=== PATIENT | male | born 1960 | race Caucasian/White ===

== ENCOUNTER 2018-11-19 23:15 | Inpatient (IN) | payer BC ==
[2018-11-19] MEDS ORDERED: Morphine 4 MG/ML VIAL (1 ml) 4 MG/ML VIAL IV ONE (23:16)
[2018-11-19] MEDS ORDERED: Ondansetron INJ* 2 MG/ML VIAL IV ONE (23:16)
--- NOTE | 2018-11-19 23:47 | ED ---
Adult Trauma - HPI Summary HPI Summary: This patient is a 58 year old M presenting to [facility] with a chief complaint of hip pain following a fall since 21:30 today. He tripped over his dog and landed on his right hip. The patient rates the pain 8/10 in severity. He denies head trauma and LOC. Pt was unable to bear weight or ambulate on the scene. Patient currently has esophageal cancer. He recently had a resection, but there is still a small section there. He is going through chemo currently for it, and his last chemo was 11/16/18. He usually has chemo every other week. Pt has a port in his R chest. He is being treated for his cancer at [place]. - History of Current Complaint Chief Complaint: EDHipPelvisInjury Stated Complaint: FALL/RT HIP PAIN PER EMS Time Seen by Provider: 11/19/18 23:15 Hx Obtained From: Patient Mechanism of Injury: Fall Ambulatory at the Scene: No Loss of Consciousness: no loss of consciousness Onset/Duration: Started Hours Ago, Still Present Onset of Pain: Immediate Pain Intensity: 8 Pain Scale Used: 0-10 Numeric Location: Other - Right hip Associated Signs & Symptoms: Positive: Other: - Right hip pain. Denies head trauma.. Negative: Loss of Consciousness - Allergy/Home Medications Allergies/Adverse Reactions: Allergies Allergy/AdvReac Type Severity Reaction Status Date / Time No Known Allergies Allergy Verified 11/19/18 23:26 Home Medications: Home Medications Omeprazole 40 mg PO DAILY 11/20/18 [History Confirmed 11/20/18] Ondansetron ODT TAB* 4 mg PO Q4HR PRN 11/20/18 [History Confirmed 11/20/18] PMH/Surg Hx/FS Hx/Imm Hx Endocrine/Hematology History: Reports: Hx Diabetes - PRE-DIABETIC: TAKES METFORMIN Cardiovascular History: Reports: Hx Hypertension, Other Cardiovascular Problems/ Disorders - WPW Denies: Hx Pacemaker/ICD GI History: Reports: Hx Irritable Bowel, Other GI Disorders - GASTROSTOMY TUBE IN PLACE History: Denies: Hx Renal Disease Sensory History: Denies: Hx Hearing Aid Psychiatric History: Denies: Hx Panic Disorder - Cancer History Cancer Type, Location and Year: ESOPHAGEAL - NEW DX - TREATMENT PLANNING Hx Chemotherapy: No Hx Radiation Therapy: No - Surgical History Surgery Procedure, Year, and Place: WART REMOVED Hx Anesthesia Reactions: No Infectious Disease History: No Infectious Disease History: Denies: Traveled Outside the [place] in Last 30 Days - Family History Known Family History: Positive: Cardiac Disease - Social History Alcohol Use: None Substance Use Type: Reports: None Smoking Status (MU): Never Smoked Tobacco Have You Smoked in the Last Year: No Review of Systems Positive: Other - Right hip pain. Unable to ambulate. Neurological: Other - Denies head trauma Negative: Syncope All Other Systems Reviewed And Are Negative: Yes Physical Exam - Summary Physical Exam Summary: Appearance: well appearing, no pain distress Skin: warm, dry, reflects adequate perfusion Head/face: normal Eyes: EOMI, NICOLLE ENT: mucous membranes moist Neck: supple, non-tender Respiratory: CTA, breath sounds present Cardiovascular: Occasionally irregular rhythm, regular rate, pulses symmetrical Abdomen: non-tender, soft Bowel Sounds: present Musculoskeletal: tenderness with palpation of his right hip but without rotation , RLE is neurovascularly intact Neuro: normal, sensory motor intact, A&Ox3 Triage Information Reviewed: Yes Vital Signs On Initial Exam: Initial Vitals Temp Pulse Resp BP Pulse Ox 98.2 F 74 16 166/106 97 11/19/18 23:15 11/19/18 23:15 11/19/18 23:15 11/19/18 23:15 11/19/18 23:15 Vital Signs Reviewed: Yes Diagnostics - Vital Signs Vital Signs Temp Pulse Resp BP Pulse Ox 11/19/18 23:19 91 166/106 97 11/19/18 23:15 98.2 F 74 16 166/106 97 - Laboratory Result Diagrams: 11/19/18 23:37 11/19/18 23:37 Lab Statement: Any lab studies that have been ordered have been reviewed, and results considered in the medical decision making process. - Radiology Chest X-Ray Radiology Interpretation Completed By: ED Physician Summary of Radiographic Findings: 00:04. No acute findings, he has a port in his R chest. Pending official report. Right hip x-ray Radiology Interpretation Completed By: ED Physician Summary of Radiographic Findings: 00:04. Non-displaced intertrochanteric right hip fracture. Pending official report. - EKG 23:59 Cardiac Rate: NL - 78 bpm EKG Rhythm: Sinus Rhythm ST Segment: Normal Ectopy: PVCs - 2 PVCs Summary of EKG Findings: Normal axis, normal interval. Adult Trauma Course/Dx - Course Course Of Treatment: Patient with a history of esophageal cancer on chemotherapy had a mechanical fall over his dog landing on his greater trochanter of the right hip. There is a nondisplaced fracture there and he is unable to weight-bear. He will be made nonweightbearing formally and admitted to the hospital for operative plan with orthopedics. Hospitalist will admit. - Diagnoses Differential Diagnosis/HQI/PQRI: Positive: Contusion(s), Fracture Provider Diagnoses: Intertrochanteric fracture of right hip, Fall, History of esophageal cancer - Physician Notifications Discussed Care Of Patient With: Reinaldo Jerez - Hospitalist Time Discussed With Above Provider: 00:16 Instructed by Provider To: Admit As Inpatient Discharge - Sign-Out/Discharge Documenting (check all that apply): Patient Departure - Admit All imaging exams completed and their final reports reviewed: No Patient Received Moderate/Deep Sedation with Procedure: No - Discharge Plan Condition: Stable Disposition: ADMITTED TO [facility] - Billing Disposition and Condition Condition: STABLE Disposition: Admitted to [facility] - Attestation Statements Document Initiated by Scribe: Yes Documenting Scribe: Angelo Ordaz Provider For Whom Scribe is Documenting (Include Credential): Roshan Valente MD Scribe Attestation: Angelo Carrera, scribed for Roshan Valente MD on 11/20/18 at 0435. Scribe Documentation Reviewed: Yes Provider Attestation: The documentation as recorded by the Angelo day accurately reflects the service I personally performed and the decisions made by me, Roshan Valente MD Status of Scribe Document: Viewed Consult Consult: 00:43 - Spoke with Dr. Alecia Bear, orthopedics, who will consult.
[2018-11-19 23:54] LABS: Activated Partial Thrombo Time 30.6 seconds (26.0-36.3); INR 1.1 (0.82-1.09)
[2018-11-19 23:58] LABS: Hematocrit 38 % (42-52); Hemoglobin 12.9 g/dL (14.0-18.0); Mean Corpuscular HGB Conc 34 g/dL (31-36); Mean Corpuscular Hemoglobin 31 pg (27-31); Mean Corpuscular Volume 90 fL (80-94); Red Blood Count 4.19 10^6 /uL (4.18-5.48); Red Cell Distribution Width 16 % (10.5-15); White Blood Count 5.1 10^3/uL (3.5-10.8)
[2018-11-20 00:05] LABS: Albumin 4.3 g/dL (3.2-5.2); Albumin/Globulin Ratio 1.9 (1-3); BUN/Creatinine Ratio 13.5 (8-20); Calcium 9.8 mg/dL (8.6-10.3); EGFR African American 131.4 (>60); EGFR Non-African American 108.6 (>60); Globulin 2.3 g/dL (2-4); Potassium 4.1 mmol/L (3.5-5.0); Total Bilirubin 0.8 mg/dL (0.2-1.0); Total Protein 6.6 g/dL (6.4-8.9)
[2018-11-20] MEDS ORDERED: Acetaminophen TAB* 325 MG PO PRN (00:18)
[2018-11-20 00:49] LABS: ABS Lymphocytes 0.1 10^3/ul (1.0-4.8); ABS Monocytes 0.3 10^3/ul (0-0.8); ABS Neutrophils 4.6 10^3/ul (1.5-7.7); Eosinophil % 0.4 %; Lymphocyte % 2.8 %; Mean Platelet Volume 9.7 fL (7.4-10.4); Nucleated Red Blood Cells % 0.6; Platelet Count 93 10^3/uL (150-450)
--- NOTE | 2018-11-20 00:49 | ADMNOTE ---
Subjective Date of Service: 11/20/18 Interval History: HISTORY AND PHYSICAL PCP: Andrew Zavala Oncologist: Kenisha Henriquez CC: right hip pain HPI: Patient is 58 year old man with history of esophageal cancer who was upstairs in his home, turned, tripped over his dog, and fell to floor. He had immediate RT hip pain, was unable to get up. He denies pain now at rest, has severe RT hip pain w/ movement. Medical history notable for diagnoses of esophageal cancer in Fall 2017. He had pre-operative stefany-adjuvant chemo and radiation therapy, and then had a gastric pull-through in Aug of this year. He admits to some fatigue from chemotherapy. He is otherwise well, can walk a mile or climb 2 flights of stairs without dyspnea or chest pain. Family History: Findings - Maternal GF had gastric cancer, mother and father are alive and well Social History: Findings - , 2 children, worked as environmental remediator, never smoker, no current alcohol use, no drug use Past Medical History: Findings - GERD, depression, hyperlipidemia, B12 deficiency, IBS, notes from surgery list diabetes, patient denies; Surgical Hx: gastric pull-through in 09/08 Review of Systems - Measurements Intake and Output: Intake and Output Last 24 Hours 11/17/18 11/18/18 11/19/18 11/20/18 06:59 06:59 06:59 06:59 Weight 79.379 kg - Review of Systems Constitutional Symptoms: Positive: Fatigue Negative: Weight Gain, Weight Loss Dermatology: Positive: Normal HEENT: Positive: Normal Eyes: Positive: Normal Thyroid: Positive: Normal Pulmonary: Positive: Normal Negative: Shortness of Breath Cardiology: Positive: Normal Negative: Chest Pain Gastroenterology: Positive: Heartburn Negative: Abdominal Pain, Vomiting Genital - Urinary: Positive: Normal Musculoskeletal: Negative: Osteoporosis Endocrinology: Positive: Normal Negative: Diabetes Mellitus Hematologic/Lymphatic: Negative: Hx Leukemia Neurology: Positive: Normal Psychiatry: Positive: Normal Objective Active Medications: Home Medications: Acetaminophen (Tylenol Tab*) 650 mg PO Q4H PRN PRN Reason: FEVER/HEADACHE Atorvastatin* [Lipitor 10 MG*] 5 mg PO QAM 08/31/15 Hyoscyamine Sulfate [Levsin] 1 - 2 tab PO Q4HR PRN 08/31/15 Cyanocobalamin TAB* [Vitamin B12 TAB*] 1,000 mcg PO QAM 04/20/18 Omeprazole 40 mg PO DAILY 11/20/18 Ondansetron ODT TAB* 4 mg PO Q4HR PRN 11/20/18 Vital Signs - 8 hr 11/19/18 11/19/18 11/20/18 23:15 23:19 00:05 Temperature 36.8 C Pulse Rate 74 91 Respiratory 16 Rate Blood Pressure 166/106 166/106 152/99 (mmHg) O2 Sat by Pulse 97 97 Oximetry 11/20/18 00:13 Temperature Pulse Rate Respiratory 16 Rate Blood Pressure (mmHg) O2 Sat by Pulse Oximetry Oxygen Devices in Use Now: None Appearance: alert, no distress Eyes: No Scleral Icterus Ears/Nose/Mouth/Throat: NL Teeth, Lips, Gums Neck: NL Appearance and Movements; NL JVP Respiratory: Symmetrical Chest Expansion and Respiratory Effort, Clear to Auscultation Cardiovascular: NL Sounds; No Murmurs; No JVD, RRR Abdominal: NL Sounds; No Tenderness; No Distention, No Hepatosplenomegaly Lymphatic: No Cervical Adenopathy, No Inguinal Adenopathy Extremities: No Edema Skin: - - port palpable RT subclavian Neurological: Alert and Oriented x 3 Lines/Tubes/Other Access: Clean, Dry and Intact Peripheral IV Nutrition: Taking PO's Result Diagrams: 11/19/18 23:37 11/19/18 23:37 Additional Lab and Data: Laboratory Tests 11/19/18 11/19/18 11/19/18 23:37 23:37 23:37 INR (Anticoag Therapy) 1.10 H APTT 30.6 Glucose 111 H Lactic Acid 1.2 Calcium 9.8 AST 36 ALT 38 Troponin I 0.00 Diagnostic Imaging: Chest X-ray: no infiltrates RT hip/pelvis film: right greater trochanteric fracture EKG Data: Normal sinus rhythm, normal axis, no ischemic ST or T-wave changes, PVCs Assess/Plan/Problems-Billing Assessment: 58 year old man with history of esophageal cancer, who sustained a right hip greater trochanteric fracture in a fall - Patient Problems (1) Fracture of right hip requiring operative repair Current Visit: Yes Status: Acute Priority: High Code(s): S72.001A - FRACTURE OF UNSP PART OF NECK OF RIGHT FEMUR, INIT SNOMED Code(s): 977335330 Comment: -Patient will be admitted, will have orthopedic consultation in the morning -Will have bed rest, pain control, hydration due to NPO status -Patient may have osteoporosis due to chemotherapy (2) Pre-op evaluation Current Visit: Yes Status: Acute Priority: High Code(s): Z01.818 - ENCOUNTER FOR OTHER PREPROCEDURAL EXAMINATION SNOMED Code(s): 570461631 Comment: -Patient has good performance status and good exercise tolerance prior to injury -He is at low risk of cardiac complications from surgery, and surgery should proceed today. (3) Esophageal adenocarcinoma Current Visit: Yes Status: Acute Priority: Medium Code(s): C15.9 - MALIGNANT NEOPLASM OF ESOPHAGUS, UNSPECIFIED SNOMED Code(s): 803031682 Comment: -Cancer recently treated, in remission (4) DVT prophylaxis Current Visit: Yes Status: Acute Priority: Medium Code(s): CWR7338 - SNOMED Code(s): 095724044 Comment: -High risk due to fracture and recent neoplasm -started on SCDs and lovenox Status and Disposition: inpatient
[2018-11-20] MEDS ORDERED: Enoxaparin(*) 40 MG/0.4 ML SYR SUBCUT SCH (01:00)
[2018-11-20] MEDS: Morphine 4 MG/ML VIAL (1 ml) 4 MG/ML VIAL IV PRN ×2 (03:15→23:54)
[2018-11-20] MEDS: NS 0.9% 1000 ML** 1,000 ML IV SCH ×2 (03:20→20:05)
[2018-11-20 04:24] LABS: Urine Appearance Clear; Urine Bilirubin Negative (Negative); Urine Blood Negative (Negative); Urine Color Yellow; Urine Glucose Negative (Negative); Urine Ketones Trace (Negative); Urine Nitrite Negative (Negative); Urine Protein Negative (Negative); Urine Specific Gravity 1.015 (1.010-1.030); Urine Urobilinogen Negative (Negative)
--- NOTE | 2018-11-20 14:47 | PN ---
Subjective Date of Service: 11/20/18 Interval History: VS: Lab: Pt is feeling well. He states that R hip pain is 2/10. He states that he had post-op AF in Aug 2018 which resolved. He was on cardizem for approximately 1 month for this and had no complications. 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 use Past Medical History: Findings - GERD, depression, hyperlipidemia, B12 deficiency, IBS, notes from surgery list diabetes, patient denies; Surgical Hx: gastric pull-through in 09/08 Objective Active Medications: Acetaminophen (Tylenol Tab*) 650 mg PO Q4H PRN Atorvastatin Calcium (Lipitor*) 5 mg PO QAM SUKHDEV Cyanocobalamin (Vitamin B12 Tab*) 1,000 mcg PO QAM SUKHDEV Enoxaparin Sodium (Lovenox(*)) 40 mg SUBCUT BEDTIME SUKHDEV Sodium Chloride (Ns 0.9% 1000 Ml) 1,000 mls @ 75 mls/hr IV PER RATE SUKHDEV Morphine Sulfate (Morphine 4 Mg/Ml Vial (1 Ml)) 4 mg IV Q3H PRN Ondansetron HCl (Zofran Inj*) 4 mg IV Q6H PRN Pantoprazole Sodium (Protonix Tab*) 40 mg PO DAILY SUKHDEV Sertraline HCl (Zoloft*) 100 mg PO QAM SUKHDEV Vital Signs: Temp Pulse Resp BP Pulse Ox 97.8 F 79 14 145/73 96 11/20/18 11:10 11/20/18 11:10 11/20/18 11:10 11/20/18 11:10 11/20/18 11:10 Oxygen Devices in Use Now: None Appearance: Pt is laying in bed. He appears comfortable and is cooperative and appropriate. Eyes: No Scleral Icterus, PERRLA Ears/Nose/Mouth/Throat: NL Teeth, Lips, Gums, Clear Oropharnyx, Mucous Membranes Moist Neck: NL Appearance and Movements; NL JVP, Trachea Midline Respiratory: Clear to Auscultation Cardiovascular: NL Sounds; No Murmurs; No JVD, RRR - Occ PVC noted, No Edema Extremities: No Edema, No Clubbing, Cyanosis, - - R hip TTP and painful movement. Radial, pedal pulses intact b/l. Sensation, cap refill intact Neurological: Alert and Oriented x 3 Result Diagrams: 11/19/18 23:37 11/19/18 23:37 Additional Lab and Data: Laboratory Tests 11/19/18 11/19/18 11/19/18 23:37 23:37 23:37 INR (Anticoag Therapy) 1.10 H APTT 30.6 Glucose 111 H Lactic Acid 1.2 Calcium 9.8 AST 36 ALT 38 Troponin I 0.00 Diagnostic Imaging: Chest X-ray: no infiltrates RT hip/pelvis film: right greater trochanteric fracture EKG Data: Normal sinus rhythm, normal axis, no ischemic ST or T-wave changes, PVCs Assess/Plan/Problems-Billing Assessment: 58 year old man with history of esophageal cancer, who sustained a right hip greater trochanteric fracture in a fall - Patient Problems (1) Fracture of right hip requiring operative repair Comment: -Ortho consulted; plan for surgery today -Will have bed rest, pain control, hydration due to NPO status -Patient may have osteoporosis due to chemotherapy (2) Diabetes mellitus Comment: -HA1c elevated to 6.1 -Nutritional consult ordered -Will discuss starting outpatient metformin (3) Postoperative atrial fibrillation Comment: -H/o post-operative AF approximately 2 months ago -EKG: NSR with occasional PVC -Will monitor (4) Esophageal adenocarcinoma Comment: -Cancer recently treated, in remission (5) DVT prophylaxis Comment: -High risk due to fracture and recent neoplasm -started on SCDs and lovenox Status and Disposition: Inpatient. Scheduled for surgery 11/20/2018.
[2018-11-20] MEDS ORDERED: Propofol* 10 MG/ML 20 ML BTL ONE (16:08)
[2018-11-20] MEDS ORDERED: fentaNYL* 50 MCG/ML 2 ML VIAL (100 MCG VIAL) ONE (16:08)
[2018-11-20] MEDS ORDERED: Rocuronium* 10 MG/ML VIAL ONE (16:08)
[2018-11-20] MEDS ORDERED: Midazolam* 1 MG/ML 5 ML VIAL (5 MG) ONE (16:09)
[2018-11-20] MEDS ORDERED: ceFAZolin 2 GM PREMIX in ORs 2 GM/50 ML BAG IVPB ONE (16:11)
[2018-11-20] MEDS ORDERED: Bupivacaine 0.5% W/EPI SDV* 30 ML VIAL ONE (17:08)
--- NOTE | 2018-11-20 17:26 | CONS ---
CONSULTATION NOTE: DATE OF CONSULT: 11/20/18 REASON FOR CONSULT: Right hip fracture. HISTORY OF PRESENT ILLNESS: The patient is a 58-year-old man, with esophageal cancer, currently in r emission, status post August 2018 gastric pull-through surgical procedure, with neoadjuvant chemoth erapy and radiation and adjuvant chemotherapy that he has not done with yet, who sustained a fall at home yesterday on 11/19/18 sustaining his injury. As stated above, the patient is still doing chemotherapy. The patient mentioned that intraoperativel y many biopsies were taken and at least one was positive. At least one lymph node was positive for d isease. The patient is undergoing adjuvant chemotherapy treatment. The patient has been ambulating without assist device and he has not before had right hip pain. The patient was at home yesterday, 11/19/18, when he tripped over his dog and fell to the floor. He had immediate pain about the right hip and was unable to get up. The patient was brought to the emergency room for workup. He had severe right hip pain with any move ment. The patient has otherwise been in good health with the ability to walk a mile or climb 2 flights of s tairs without shortness of breath or chest pain. The hospitalist service admitted the patient for a right hip fracture, DVT prophylaxis, and preoperat adrianna evaluation. The patient was deemed to be low risk of cardiac complications for surgery and it wa s stated that the surgery could proceed forward. PAST MEDICAL HISTORY: Gastroesophageal reflux disease, depression, hyperlipidemia, vitamin B12 defic iency, irritable bowel syndrome, esophageal adenocarcinoma. PAST SURGICAL HISTORY: Gastric pull-through procedure, November 2018. HOME MEDICATIONS: 1. Acetaminophen p.r.n. fever or headache. 2. Atorvastatin. 3. Hyoscyamine sulfate p.r.n. 4. Vitamin B12 tablets p.o. daily. 5. Omeprazole. 6. Ondansetron p.r.n. ALLERGIES: No known drug allergies. FAMILY HISTORY: Noncontributory. 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 Never a smoker. REVIEW OF SYSTEMS: The patient describes right hip pain, but only if he is moving. When he is not mo ving, he does not have significant right hip pain. The patient does have fatigue. No recent additio nal weight loss. No chest pain, shortness of breath, abdominal pain, nausea, or vomiting currently, although the patient has had nausea in the past. No other joint pain. PHYSICAL EXAM: Most recent vitals at 11:10 a.m. today were body temperature 97.8 degrees Fahrenheit, heart rate 79, blood pressure 145/73, respirations 14, and oxygen saturation 96% on room air. No acute distress, alert and oriented, appropriate mood and affect, appropriate dress and hygiene, we ll-coordinated bilateral upper and lower extremities. The patient is lying in a hospital bed. The patient looks slightly thin and possibly slightly bit cachectic for his age and overall activity level. The patient is nontoxic appearing and comfortable lying in bed. Right hip exam shows severe pain with any passive range of motion of the right hip. Skin intact. No soft tissue swelling or bruising right hip area. Neurovascularly intact distally. By report from [place] dicine service, lungs clear to auscultation bilaterally and heart regular rate and rhythm. DIAGNOSTIC STUDIES/LAB DATA: Platelet count is low at 93. INR is 1.10. Hemoglobin A1c is 6.1. Imaging: X-rays 3 views of the right hip from 11/19/18 show an intertrochanteric fracture with no or minimal displacement. There is a slightly displaced fragment of the greater trochanter as well. Th e fracture line does not appear to go distal to the lesser trochanter. I see no sign of lytic or scl erotic bone lesions about the hip. There is an area of slightly increased density about the anterior aspect of the femoral neck, but it appears to be more consistent with a bone island. He has several of these possibly in the right iliac crest also. ASSESSMENT: 1. Right hip intertrochanteric fracture, non or minimally displaced. 2. History of esophageal adenocarcinoma, currently in remission, on adjuvant chemotherapy, with a fa ll from a standing height resulting in a hip fracture in a 58-year-old. PLAN: 1. The patient has been cleared and optimized for surgery by the medicine service. 2. I do not see any worrisome findings on the x-ray now that would indicate or call for advanced melissa ging. This would be to define any metastasis if present. 3. To the operating room for open reduction and internal fixation with right hip short intramedullar y nail. 4. We will monitor bleeding intraoperatively as the patient's platelet count is only 93. 5. The patient has received Lovenox preoperatively. Unclear when his last dose is, but we will rush nvene that medicine postoperative day 1 in the morning. 6. Discussed risks and potential complications with the patient and his family including a whole hos t of surgical and medical complications for hip fractures. 7. Postoperatively, the patient will be admitted back to the hospitalist service for as long as as n eeded or to Orthopedics postoperatively. The patient will then follow up with me in clinic about 14 to 17 days postoperatively for a wound check and x-rays. [id number]/[facility] #: [id number]
[2018-11-20] MEDS ORDERED: EPHEDrine (Pressors)* 50 MG/ML VIAL ONE (17:33)
[2018-11-20] MEDS ORDERED: Ondansetron INJ* 2 MG/ML VIAL ONE (17:53)
[2018-11-20] MEDS ORDERED: oxyCODONE/Acetamin 5/325 MG* TAB PO PRN (18:12)
[2018-11-20] MEDS ORDERED: Ondansetron INJ* 2 MG/ML VIAL IV PRN (18:12)
[2018-11-20] MEDS ORDERED: Naloxone* 0.4 MG/ML 1 ML VIAL IV PRN (18:12)
[2018-11-20] MEDS ORDERED: HYDROmorphone INJ1* 1 MG/ML SYRINGE IV PRN (18:12)
[2018-11-20] MEDS ORDERED: diPHENhydraMINE IV* 50 MG/ML 1 ml VIAL (BENADRYL) IV PRN (18:12)
[2018-11-20] MEDS: fentaNYL* 50 MCG/ML 2 ML VIAL (100 MCG VIAL) IV PRN ×4 (18:14→18:40)
[2018-11-20] MEDS ORDERED: oxyCODONE/Acetamin 5/325 MG* TAB ONE (18:37)
[2018-11-20] MEDS: Sertraline* 100 MG TAB PO SCH (19:53)
[2018-11-20] MEDS: Atorvastatin* 10 MG TAB PO SCH (20:00)
[2018-11-20] MEDS: Cyanocobalamin TAB* 500 MCG PO SCH (20:01)
[2018-11-20] MEDS: Pantoprazole TAB * 40 MG TAB PO SCH (20:01)
[2018-11-20] MEDS: oxyCODONE/Acetamin 5/325 MG* TAB PO PRN (22:27)
[2018-11-21] MEDS: oxyCODONE/Acetamin 5/325 MG* TAB PO PRN ×3 (02:41→10:33)
[2018-11-21 05:41] LABS: ABS Lymphocytes 0.1 10^3/ul (1.0-4.8); ABS Monocytes 0.2 10^3/ul (0-0.8); ABS Neutrophils 1.7 10^3/ul (1.5-7.7); Eosinophil % 2.1 %; Hematocrit 25 % (42-52); Hemoglobin 8.6 g/dL (14.0-18.0); Lymphocyte % 6.5 %; Mean Corpuscular HGB Conc 35 g/dL (31-36); Mean Corpuscular Hemoglobin 31 pg (27-31); Mean Corpuscular Volume 89 fL (80-94); Mean Platelet Volume 8.6 fL (7.4-10.4); Platelet Count 75 10^3/uL (150-450); Red Blood Count 2.74 10^6 /uL (4.18-5.48); Red Cell Distribution Width 16 % (10.5-15); White Blood Count 2.2 10^3/uL (3.5-10.8)
[2018-11-21 05:52] LABS: BUN/Creatinine Ratio 20.9 (8-20); Calcium 8.7 mg/dL (8.6-10.3); EGFR African American 147.4 (>60); EGFR Non-African American 121.8 (>60); Potassium 4.3 mmol/L (3.5-5.0)
--- NOTE | 2018-11-21 08:48 | PN ---
Progress Note - Progress Note Date of Service: 11/21/18 SOAP: Subjective: POD #1 Right hip ORIF with TFN. Doing well. C/o muscle spasm in thigh. Otherwise pain well controlled. Denies CP/SOB, f/c, n/v. Objective: Vitals: Temp Pulse Resp BP Pulse Ox 98.2 F 102 16 131/62 95 11/21/18 03:40 11/21/18 03:40 11/21/18 06:31 11/21/18 03:40 11/21/18 03:40 Gen: A&Ox3, NAD at rest sitting in bed RLE: Hip dressing C/D/I. Thigh soft/NT. +f/e at ankle and MTPs. N/V intact. Calf soft/NT Labs: Laboratory Results - last 24 hr 11/19/18 11/21/18 11/21/18 23:37 05:16 05:16 WBC 2.2 L RBC 2.74 L Hgb 8.6 L Hct 25 L MCV 89 MCH 31 MCHC 35 RDW 16 H Plt Count 75 L MPV 8.6 Neut % (Auto) 79.8 Lymph % (Auto) 6.5 Towner % (Auto) 11.0 Eos % (Auto) 2.1 Baso % (Auto) 0.6 Absolute Neuts (auto) 1.7 Absolute Lymphs (auto) 0.1 L Absolute Monos (auto) 0.2 Absolute Eos (auto) 0.0 Absolute Basos (auto) 0.0 Absolute Nucleated RBC 0.0 Nucleated RBC % 0.0 Sodium 135 Potassium 4.3 Chloride 105 Carbon Dioxide 28 Anion Gap 2 BUN 14 Creatinine 0.67 Est GFR ( Amer) 147.4 Est GFR (Non-Af Amer) 121.8 BUN/Creatinine Ratio 20.9 H Glucose 135 H Hemoglobin A1c 6.1 H Calcium 8.7 Assessment: POD #1 Right hip ORIF Plan: PT/OT, WBAT RLE Lovenox for DVT ppx
[2018-11-21] MEDS: Enoxaparin(*) 40 MG/0.4 ML SYR SUBCUT SCH (08:50)
[2018-11-21] MEDS: Pantoprazole TAB * 40 MG TAB PO SCH (08:50)
[2018-11-21] MEDS: Sertraline* 100 MG TAB PO SCH (08:50)
[2018-11-21] MEDS: Atorvastatin* 10 MG TAB PO SCH (08:50)
[2018-11-21] MEDS: Cyanocobalamin TAB* 500 MCG PO SCH (08:50)
[2018-11-21] MEDS: ceFAZolin 1 GM* X 3 DOSES POST-OP Q8H (AddVan) IVPB SCH ×6 (08:54→16:56)
[2018-11-21] MEDS: NS 0.9% 1000 ML** 1,000 ML IV SCH (09:48)
[2018-11-21] MEDS ORDERED: Cyclobenzaprine TAB* 10 MG PO PRN (10:49)
--- NOTE | 2018-11-21 11:35 | OP ---
OPERATIVE REPORT: DATE OF OPERATION: 11/20/18. DATE OF : 60. SURGEON: Rashaun Saucedo MD. MEDICAL PATHOLOGY TEACHER: ALPHONSE Berg. A physician web production assistant was required for the length of the procedure for assistance with positioning, retraction, and closure. ANESTHESIOLOGIST: Lenny Perez MD ANESTHESIA: General anesthesia, local anesthesia using approximately 20 cc of Marcaine 25% with epinephrine. PRE-OP DIAGNOSIS: Right hip intertrochanteric fracture, non-amenably displaced. POST-OP DIAGNOSES: Right hip intertrochanteric fracture, non-amenably displaced. OPERATIVE PROCEDURE: Open reduction and internal fixation, right hip intertrochanteric fracture with short intramedullary nail. ANTIBIOTICS: Ancef 2 g IV. IV FLUIDS: 1500 cc crystalloid. LYYY-UD-HMIS TIME: 65 minutes. RADIATION EXPOSURE: Large C-arm used. 56 seconds. 14.98 mGy. SPECIMEN: Reamings used with the entry reamer were sent to Pathology given the patient's history of cancer. IMPLANTS: Synthes right TFNA short nail. 11 mm x 125 degrees, x170 mm in length. Lag screw proximally, cephalomedullary and distal locking screws placed through the nail. COMPLICATIONS: None. ESTIMATED BLOOD LOSS: Less than 100 cc. INDICATION FOR PROCEDURE: The patient is a 58-year-old man with esophageal cancer currently in remission, on his adjuvant chemotherapy after a gastric pull -through surgical procedure done in August 2018. He also had neoadjuvant chemotherapy and radiation. He fell on 11/19/18 at home, tripping over a dog on his right side. He had right hip pain and could not ambulate. X-rays showed a non-amenably displaced right intertrochanteric hip fracture and the patient was cleared and optimized for surgery by the hospitalist service. Discussed risks and potential complications of surgery, both surgical and medical. Patient opted to proceed with surgery. DESCRIPTION OF PROCEDURE: The patient signed a written consent while still in his floor bed. Similarly, operative extremity was again marked at that location. Patient was brought to preoperative holding and then brought to the operating room. He was placed on a fracture table. Sedated and intubated. The fracture table was set up appropriately. C-arm was brought into demonstrate that good AP and lateral views to be obtained. C-arm was brought out. No manipulation was required of the right hip. The right hip was prepped and draped. Surgical time-out performed. I made 1-cm stab incision in the skin, 8-cm proximal to the proximal tip of the greater trochanter in line with the femoral shaft. I placed a pin down to the greater troch. I advanced this. It was good in the AP dimension, but slightly posterior in the lateral dimension as demonstrated by C-arm imaging. I dissected the skin distally and extended that dissection deep, through hip abductor fascia. I next repositioned the pin slightly more anterior. Excellent pin position. I used an entry reamer and then tried to place a nail. A nail would not advance all the way. I removed or incised some deep soft tissue distally to enable the nail guide not to get hung up. It was also then evident that as well the patient's femoral canal was narrow enough to require reaming. Therefore, I inserted a flexible guidewire and used a flexible reamer, reaming up to a size 13. I replaced the nail without any difficulty. I used the targeting device to place a lag screw into the femoral head. I compressed with this lag screw and then statically lock it. I next used the targeting guide to place a locking screw in the distal end of the nail. Irrigation of all wounds. Closure of hip abductor fascia with a running stitch using Vicryl 0 suture. Likewise, some buried deep stitches in the iliotibial band at the distal incisions were placed. Closure of subcutaneous tissue in all 3 incisions was done with buried simple stitches using Vicryl 2-0 suture. Closure of the skin with colt. Local anesthesia was then injected into the subcutaneous tissue surrounding the incision sites. Dressing was Xeroform, 4x4s, ABDs, foam tape. Patient was extubated, taken off the fracture table. Patient was readmitted to the hospitalist service postoperatively. DISPOSITION: The patient will be weightbearing as tolerated to the right lower extremity. Patient will be on Lovenox anticoagulation for 4 weeks postoperative. My preference is for 40 mg subcu daily. Pain control as needed, IV and oral. Physical therapy to work extensively with the patient. We will await pathology results from the patient's reamings from the entry reamer just to rule out any type of pathologic fracture. X-rays preoperatively had showed no concern for a pathologic lesion without any lytic or blastic lesions in the proximal femur. [id number]/[facility] #: [id number] MTDD
[2018-11-21] MEDS: Ondansetron INJ* 2 MG/ML VIAL IV PRN (11:47)
[2018-11-21] MEDS: Morphine 4 MG/ML VIAL (1 ml) 4 MG/ML VIAL IV PRN ×2 (11:59→23:19)
--- NOTE | 2018-11-21 13:08 | PN ---
Subjective Date of Service: 11/21/18 Interval History: VS: WNL Lab: Pancytopenia- likely d/t chemo + post-operative state; HA1c: 6.1 Pt states that he is feeling well. Pain 2/10 in R hip. He denies CP, SOB, abd pain, n/v/d/c, pain in calves. Family History: Findings - Maternal GF had gastric cancer, mother and father are alive and well Social History: Findings - , 2 children, worked as environmental remediator, never smoker, no current alcohol use, no drug use Past Medical History: Findings - GERD, depression, hyperlipidemia, B12 deficiency, IBS, notes from surgery list diabetes, patient denies; Surgical Hx: gastric pull-through in 09/08 Objective Active Medications: Acetaminophen (Tylenol Tab*) 650 mg PO Q4H PRN Atorvastatin Calcium (Lipitor*) 5 mg PO QAM [facility] Cyanocobalamin (Vitamin B12 Tab*) 1,000 mcg PO QAM [facility] Cyclobenzaprine HCl (Flexeril Tab*) 10 mg PO TID PRN Enoxaparin Sodium (Lovenox(*)) 40 mg SUBCUT Q24H [facility] Hydromorphone HCl (Dilaudid Tab*) 2 mg PO Q4H PRN Sodium Chloride (Ns 0.9% 1000 Ml) 1,000 mls @ 75 mls/hr IV PER RATE [facility] Cefazolin Sodium 1 gm/ Sodium (Chloride) 50 mls @ 200 mls/hr IVPB Q8H [facility] Morphine Sulfate (Morphine 4 Mg/Ml Vial (1 Ml)) 4 mg IV Q3H PRN Ondansetron HCl (Zofran Inj*) 4 mg IV Q6H PRN Oxycodone/Acetaminophen (Percocet 5/325 Tab*) 1 tab PO Q4H PRN Pantoprazole Sodium (Protonix Tab*) 40 mg PO DAILY [facility] Sertraline HCl (Zoloft*) 100 mg PO QAM [facility] Vital Signs: Temp Pulse Resp BP Pulse Ox 98.4 F 48 16 121/52 99 11/21/18 15:29 11/21/18 15:29 11/21/18 15:29 11/21/18 15:29 11/21/18 15:29 Oxygen Devices in Use Now: None Appearance: Pt is sitting in chair with b/l LE elevated. He appears comfortable and in no acute distress. Eyes: No Scleral Icterus, PERRLA Ears/Nose/Mouth/Throat: NL Teeth, Lips, Gums, Clear Oropharnyx, Mucous Membranes Moist Neck: NL Appearance and Movements; NL JVP, Trachea Midline Respiratory: Symmetrical Chest Expansion and Respiratory Effort, Clear to Auscultation Cardiovascular: NL Sounds; No Murmurs; No JVD, RRR, No Edema Abdominal: NL Sounds; No Tenderness; No Distention, No Hepatosplenomegaly Extremities: No Edema, No Clubbing, Cyanosis, - - R hip with CDI dressing. Pulses, sensation intact. Neurological: Alert and Oriented x 3 Result Diagrams: 11/22/18 04:27 11/21/18 05:16 Additional Lab and Data: Laboratory Tests 11/19/18 11/19/18 11/19/18 23:37 23:37 23:37 INR (Anticoag Therapy) 1.10 H APTT 30.6 Glucose 111 H Lactic Acid 1.2 Calcium 9.8 AST 36 ALT 38 Troponin I 0.00 Diagnostic Imaging: Chest X-ray: no infiltrates RT hip/pelvis film: right greater trochanteric fracture EKG Data: Normal sinus rhythm, normal axis, no ischemic ST or T-wave changes, PVCs Assess/Plan/Problems-Billing Assessment: 58 year old man with history of esophageal cancer, who sustained a right hip greater trochanteric fracture in a fall - Patient Problems (1) Fracture of right hip requiring operative repair Comment: -POD1 -WBAT RLE -PT/OT (2) Pancytopenia Comment: -Likely multifactorial: post-operative blood loss, dilutional, and chemo treatment (last treatment Friday) -Continue to monitor (3) Esophageal adenocarcinoma Comment: -Resected with chemo; last chemo 11/16-11/18 (24-hour home) (4) Pre-diabetes Comment: -HA1c elevated at 6.1 -Pt will f/u with PCP (5) Postoperative atrial fibrillation Comment: -H/o post-operative AF approximately 2 months ago -EKG: NSR with occasional PVC; exam RRR -Will monitor (6) DVT prophylaxis Comment: -High risk due to fracture and recent neoplasm -started on SCDs and lovenox -Continue to monitor platelets Status and Disposition: Inpatient. Discharge when cleared by ortho.
--- NOTE | 2018-11-21 15:34 | PN ---
Progress Note - Progress Note Date of Service: 11/21/18 SOAP: Subjective: [Admitted for R hip fx after tripping and falling. Denies dizziness, weakness, etc that proceeded the fall. Went the OR last night and is doing relatively well today.] Objective: [ Laboratory Results - last 24 hr 11/21/18 11/21/18 05:16 05:16 WBC 2.2 L RBC 2.74 L Hgb 8.6 L Hct 25 L MCV 89 MCH 31 MCHC 35 RDW 16 H Plt Count 75 L MPV 8.6 Neut % (Auto) 79.8 Lymph % (Auto) 6.5 [place] % (Auto) 11.0 Eos % (Auto) 2.1 Baso % (Auto) 0.6 Absolute Neuts (auto) 1.7 Absolute Lymphs (auto) 0.1 L Absolute Monos (auto) 0.2 Absolute Eos (auto) 0.0 Absolute Basos (auto) 0.0 Absolute Nucleated RBC 0.0 Nucleated RBC % 0.0 Sodium 135 Potassium 4.3 Chloride 105 Carbon Dioxide 28 Anion Gap 2 BUN 14 Creatinine 0.67 Est GFR ( Amer) 147.4 Est GFR (Non-Af Amer) 121.8 BUN/Creatinine Ratio 20.9 H Glucose 135 H Calcium 8.7 Acetaminophen (Tylenol Tab*) 650 mg PO Q4H PRN PRN Reason: FEVER/HEADACHE Last Admin: 11/20/18 11:27 Dose: 650 mg Atorvastatin Calcium (Lipitor*) [facility] [place] [facility] Last Admin: 11/21/18 08:50 Dose: 5 mg Cyanocobalamin (Vitamin B12 Tab*) 1,000 mcg PO [facility] Last Admin: 11/21/18 08:50 Dose: 1,000 mcg Cyclobenzaprine HCl (Flexeril Tab*) 10 mg PO TID PRN PRN Reason: SPASMS Enoxaparin Sodium (Lovenox(*)) 40 mg SUBCUT Q24H [facility] Last Admin: 11/21/18 08:50 Dose: 40 mg Hydromorphone HCl (Dilaudid Tab*) 2 mg PO Q4H PRN PRN Reason: PAIN Sodium Chloride (Ns 0.9% 1000 Ml) 1,000 mls @ 75 mls/hr IV PER RATE [facility] Last Admin: 11/21/18 09:48 Dose: 75 mls/hr Cefazolin Sodium 1 gm/ Sodium (Chloride) 50 mls @ 200 mls/hr IVPB Q8H [facility] Stop: 11/21/18 16:44 Last Admin: 11/21/18 08:54 Dose: 200 mls/hr Morphine Sulfate (Morphine 4 Mg/Ml Vial (1 Ml)) 4 mg IV Q3H PRN PRN Reason: PAIN - MODERATE TO SEVERE Last Admin: 11/21/18 11:59 Dose: 4 mg Ondansetron HCl (Zofran Inj*) 4 mg IV Q6H PRN PRN Reason: NAUSEA Last Admin: 11/21/18 11:47 Dose: 4 mg Oxycodone/Acetaminophen (Percocet 5/325 Tab*) 1 tab PO Q4H PRN PRN Reason: PAIN Last Admin: 11/21/18 10:33 Dose: 1 tab Pantoprazole Sodium (Protonix Tab*) 40 mg PO DAILY [facility] Last Admin: 11/21/18 08:50 Dose: 40 mg Sertraline HCl (Zoloft*) 100 mg PO QAM [facility] Last Admin: 11/21/18 08:50 Dose: 100 mg Vital Signs: Temp Pulse Resp BP Pulse Ox 98.3 F 64 18 134/51 94 11/21/18 11:46 11/21/18 13:41 11/21/18 11:59 11/21/18 11:46 11/21/18 11:46 Exam: Gen: Relatively well appearing 58 yo male in NAD HEENT: MMM, no m/r/g CV: RRR, no m/r/g Resp: CTA, no w/c/r Abd: soft, nonTTP Ext: R hip with clean and intact dressing, no associated edema Skin: no rash] Assessment: [58 yo male with esophageal CA s/p neoadjuvant chemo/RT followed by resection now receiving adjuvant chemotherapy for positive gastric margin. He is currently day 6 of cycle 3 of FOLFOX. ] Plan: [1. R hip fx - s/p ORIF by Dr Cason 11/20 - POD #1 - bone specimen sent for pathology, but unlikely related to his malignancy 2. Esophageal CA - currently receiving adjuvant FOLFOX, C3D6 today - anticipate that his counts may fall further as he enters his ileana, not currently neutropenic - check CBC daily - plan to delay C4 until appropriately healed from surgery, likely 3-4 weeks Dispo: per surgery, oncology will continue to follow along and will see him in clinic following discharge prior to resuming chemotherapy
[2018-11-21] MEDS: HYDROmorphone TAB* 2 MG PO PRN (16:59)
[2018-11-22] MEDS: ceFAZolin 1 GM* X 3 DOSES POST-OP Q8H (AddVan) IVPB SCH ×6 (01:40→16:38)
[2018-11-22 05:15] LABS: Hematocrit 22 % (42-52); Hemoglobin 7.6 g/dL (14.0-18.0); Mean Corpuscular HGB Conc 35 g/dL (31-36); Mean Corpuscular Hemoglobin 31 pg (27-31); Mean Corpuscular Volume 89 fL (80-94); Mean Platelet Volume 9.5 fL (7.4-10.4); Platelet Count 61 10^3/uL (150-450); Red Blood Count 2.45 10^6 /uL (4.18-5.48); Red Cell Distribution Width 15 % (10.5-15); White Blood Count 1.4 10^3/uL (3.5-10.8)
[2018-11-22 05:38] LABS: ABS Lymphocytes 0.2 10^3/ul (1.0-4.8); ABS Monocytes 0.3 10^3/ul (0-0.8); ABS Neutrophils 0.9 10^3/ul (1.5-7.7); Lymphocyte % 11.2 %
[2018-11-22] MEDS: Pantoprazole TAB * 40 MG TAB PO SCH (08:49)
[2018-11-22] MEDS: Cyanocobalamin TAB* 500 MCG PO SCH (08:49)
[2018-11-22] MEDS: HYDROmorphone TAB* 2 MG PO PRN ×3 (08:49→18:29)
[2018-11-22] MEDS: Sertraline* 100 MG TAB PO SCH (08:50)
[2018-11-22] MEDS: Enoxaparin(*) 40 MG/0.4 ML SYR SUBCUT SCH (08:50)
[2018-11-22] MEDS: Atorvastatin* 10 MG TAB PO SCH (08:50)
--- NOTE | 2018-11-22 09:38 | PN ---
Progress Note - Progress Note Date of Service: 11/22/18 SOAP: Subjective: [POD #2 from R hip ORIF with TFN. Patient is doing well, pain is controlled. Cyclobenzaprine added yesterday for muscle spasms. Pt denies f/c, calf pain, CP , SOB, N/V/D.] Objective: [General: A&O x 3. NAD resting in bed. RLE: Dressing C/D/I. No thigh or calf redness/swelling. Calf soft and NT. +f/e of ankle and MTPs. RLE N/V intact. Vital Signs Temp Pulse Resp BP Pulse Ox 98.3 F 98 18 128/60 94 11/22/18 07:41 11/22/18 07:41 11/22/18 08:49 11/22/18 07:41 11/22/18 07:41 Laboratory Last Values WBC 1.4 10^3/uL (3.5-10.8) L 11/22/18 04:27 RBC 2.45 10^6 /uL (4.18-5.48) L 11/22/18 04:27 Hgb 7.6 g/dL (14.0-18.0) L 11/22/18 04:27 Hct 22 % (42-52) L 11/22/18 04:27 MCV 89 fL (80-94) 11/22/18 04:27 MCH 31 pg (27-31) 11/22/18 04:27 MCHC 35 g/dL (31-36) 11/22/18 04:27 RDW 15 % (10.5-15) 11/22/18 04:27 Plt Count 61 10^3/uL (150-450) L 11/22/18 04:27 MPV 9.5 fL (7.4-10.4) 11/22/18 04:27 Neut % (Auto) 60.7 % 11/22/18 04:27 Lymph % (Auto) 11.2 % 11/22/18 04:27 [place] % (Auto) 24.3 % 11/22/18 04:27 Eos % (Auto) 3.0 % 11/22/18 04:27 Baso % (Auto) 0.8 % 11/22/18 04:27 Absolute Neuts (auto) 0.9 10^3/ul (1.5-7.7) L* 11/22/18 04:27 Absolute Lymphs (auto) 0.2 10^3/ul (1.0-4.8) L 11/22/18 04:27 Absolute Monos (auto) 0.3 10^3/ul (0-0.8) 11/22/18 04:27 Absolute Eos (auto) 0.0 10^3/ul (0-0.6) 11/22/18 04:27 Absolute Basos (auto) 0.0 10^3/ul (0-0.2) 11/22/18 04:27 Absolute Nucleated RBC 0.0 10^3/ul 11/22/18 04:27 Nucleated RBC % 0.0 11/22/18 04:27 INR (Anticoag Therapy) 1.10 (0.82-1.09) H 11/19/18 23:37 APTT 30.6 seconds (26.0-36.3) 11/19/18 23:37 Sodium 135 mmol/L (135-145) 11/21/18 05:16 Potassium 4.3 mmol/L (3.5-5.0) 11/21/18 05:16 Chloride 105 mmol/L (101-111) 11/21/18 05:16 Carbon Dioxide 28 mmol/L (22-32) 11/21/18 05:16 Anion Gap 2 mmol/L (2-11) 11/21/18 05:16 BUN 14 mg/dL (6-24) 11/21/18 05:16 Creatinine 0.67 mg/dL (0.67-1.17) 11/21/18 05:16 Est GFR ( Amer) 147.4 (>60) 11/21/18 05:16 Est GFR (Non-Af Amer) 121.8 (>60) 11/21/18 05:16 BUN/Creatinine Ratio 20.9 (8-20) H 11/21/18 05:16 Glucose 135 mg/dL (70-100) H 11/21/18 05:16 Hemoglobin A1c 6.1 % (4.0-5.6) H 11/19/18 23:37 Lactic Acid 1.2 mmol/L (0.5-2.0) 11/19/18 23:37 Calcium 8.7 mg/dL (8.6-10.3) 11/21/18 05:16 Total Bilirubin 0.80 mg/dL (0.2-1.0) 11/19/18 23:37 AST 36 U/L (13-39) 11/19/18 23:37 ALT 38 U/L (7-52) 11/19/18 23:37 Alkaline Phosphatase 70 U/L (34-104) 11/19/18 23:37 Troponin I 0.00 ng/mL (<0.04) 11/19/18 23:37 Total Protein 6.6 g/dL (6.4-8.9) 11/19/18 23:37 Albumin 4.3 g/dL (3.2-5.2) 11/19/18 23:37 Globulin 2.3 g/dL (2-4) 11/19/18 23:37 Albumin/Globulin Ratio 1.9 (1-3) 11/19/18 23:37 Urine Color Yellow 11/20/18 03:00 Urine Appearance Clear 11/20/18 03:00 Urine pH 6.0 (5-9) 11/20/18 03:00 Ur Specific [place] 1.015 (1.010-1.030) 11/20/18 03:00 Urine Protein Negative (Negative) 11/20/18 03:00 Urine Ketones Trace (Negative) A 11/20/18 03:00 Urine Blood Negative (Negative) 11/20/18 03:00 Urine Nitrate Negative (Negative) 11/20/18 03:00 Urine Bilirubin Negative (Negative) 11/20/18 03:00 Urine Urobilinogen Negative (Negative) 11/20/18 03:00 Ur Leukocyte Esterase Negative (Negative) 11/20/18 03:00 Urine Glucose Negative (Negative) 11/20/18 03:00 Blood Type A Negative 11/19/18 23:37 Antibody Screen Negative 11/19/18 23:37 ] Assessment: [POD #2 from R hip ORIF with TFN.] Plan: [PT/OT WBAT RLE Lovenox for DVT ppx Dressing change POD #3]
[2018-11-22] MEDS: Ondansetron INJ* 2 MG/ML VIAL IV PRN (11:08)
--- NOTE | 2018-11-22 14:17 | PN ---
Progress Note - Progress Note Date of Service: 11/22/18 SOAP: Subjective: [Reports feeling ok. Walking few steps. Pain better controlled. Fatigued. No dizziness or SOLIS.] Objective: [ Laboratory Results - last 24 hr 11/22/18 04:27 WBC 1.4 L RBC 2.45 L Hgb 7.6 L Hct 22 L MCV 89 MCH 31 MCHC 35 RDW 15 Plt Count 61 L MPV 9.5 Neut % (Auto) 60.7 Lymph % (Auto) 11.2 [place] % (Auto) 24.3 Eos % (Auto) 3.0 Baso % (Auto) 0.8 Absolute Neuts (auto) 0.9 L* Absolute Lymphs (auto) 0.2 L Absolute Monos (auto) 0.3 Absolute Eos (auto) 0.0 Absolute Basos (auto) 0.0 Absolute Nucleated RBC 0.0 Nucleated RBC % 0.0 Acetaminophen (Tylenol Tab*) 650 mg PO Q4H PRN PRN Reason: FEVER/HEADACHE Last Admin: 11/20/18 11:27 Dose: 650 mg Atorvastatin Calcium (Lipitor*) 5 mg PO QAM [facility] Last Admin: 11/22/18 08:50 Dose: 5 mg Cyanocobalamin (Vitamin B12 Tab*) 1,000 mcg PO QAM [facility] Last Admin: 11/22/18 08:49 Dose: 1,000 mcg Cyclobenzaprine HCl (Flexeril Tab*) 10 mg PO TID PRN PRN Reason: SPASMS Enoxaparin Sodium (Lovenox(*)) 40 mg SUBCUT Q24H [facility] Last Admin: 11/22/18 08:50 Dose: 40 mg Hydromorphone HCl (Dilaudid Tab*) 2 mg PO Q4H PRN PRN Reason: PAIN Last Admin: 11/22/18 12:08 Dose: 2 mg Sodium Chloride (Ns 0.9% 1000 Ml) 1,000 mls @ 75 mls/hr IV PER RATE [facility] Last Admin: 11/21/18 09:48 Dose: 75 mls/hr Cefazolin Sodium 1 gm/ Sodium (Chloride) 50 mls @ 200 mls/hr IVPB Q8H [facility] Stop: 11/22/18 16:44 Last Admin: 11/22/18 08:48 Dose: 200 mls/hr Morphine Sulfate (Morphine 4 Mg/Ml Vial (1 Ml)) 4 mg IV Q3H PRN PRN Reason: PAIN - MODERATE TO SEVERE Last Admin: 11/21/18 23:19 Dose: 4 mg Ondansetron HCl (Zofran Inj*) 4 mg IV Q6H PRN PRN Reason: NAUSEA Last Admin: 11/22/18 11:08 Dose: 4 mg Oxycodone/Acetaminophen (Percocet 5/325 Tab*) 1 tab PO Q4H PRN PRN Reason: PAIN Last Admin: 11/21/18 10:33 Dose: 1 tab Pantoprazole Sodium (Protonix Tab*) 40 mg PO DAILY [facility] Last Admin: 11/22/18 08:49 Dose: 40 mg Sertraline HCl (Zoloft*) 100 mg PO QAM [facility] Last Admin: 11/22/18 08:50 Dose: 100 mg Vital Signs: Temp Pulse Resp BP Pulse Ox 98.3 F 70 18 102/45 97 11/22/18 11:25 11/22/18 11:25 11/22/18 12:08 11/22/18 11:25 11/22/18 11:25 Exam: Gen: Relatively well appearing 58 yo male in NAD, somewhat pale HEENT: MMM, no m/r/g CV: RRR, no m/r/g Resp: CTA, no w/c/r Abd: soft, nonTTP Ext: R hip with clean and intact dressing, no associated edema Skin: no rash] Assessment: [58 yo male with esophageal CA s/p neoadjuvant chemo/RT followed by resection now receiving adjuvant chemotherapy for positive gastric margin. He is currently day 7 of cycle 3 of FOLFOX. ] Plan: [1. R hip fx - s/p ORIF by Dr Cason 11/20 - POD #2 - bone specimen sent for pathology, but unlikely related to his malignancy 2. Pancytopenia secondary to chemotherapy - this is his expected ileana period from chemotherapy - now neutropenic, ANC 900 - recommend continuing abx through period of neutropenia to prevent infection, can be oral at the time of discharge. - anemic, 7.4 g/dl - discussed transfusion today, but he is relatively asx and would like to defer (transfuse for Hgb <7) - thrombocytopenic, plts 71K - ok to cont DVT prophylaxis anticoagulation but hold for <50K 2. Esophageal CA - currently receiving adjuvant FOLFOX, C3D7 today - plan to delay C4 until appropriately healed from surgery, likely 3-4 weeks Dispo: per surgery, oncology will continue to follow along and will see him in clinic following discharge prior to resuming chemotherapy]
--- NOTE | 2018-11-22 15:03 | PN ---
Subjective Date of Service: 11/22/18 Interval History: Mr. Cohen is feeling well today. He continues to have hip pain with movement, up to 7/10, but no pain at rest. On exam he was sitting in the chair comfortably. He denies CP, SOB, N/V. No concerns from nursing. Family History: Unchanged from Admission Social History: Unchanged from Admission Past Medical History: Unchanged from Admission Objective Active Medications: Acetaminophen (Tylenol Tab*) 650 mg PO Q4H PRN FEVER/HEADACHE Atorvastatin Calcium (Lipitor*) 5 mg PO QAM [facility] Cyanocobalamin (Vitamin B12 Tab*) 1,000 mcg PO QAM [facility] Cyclobenzaprine HCl (Flexeril Tab*) 10 mg PO TID PRN SPASMS Enoxaparin Sodium (Lovenox(*)) 40 mg SUBCUT Q24H [facility] Hydromorphone HCl (Dilaudid Tab*) 2 mg PO Q4H PRN PAIN Sodium Chloride (Ns 0.9% 1000 Ml) 1,000 mls @ 75 mls/hr IV PER RATE [facility] Cefazolin Sodium 1 gm/ Sodium (Chloride) 50 mls @ 200 mls/hr IVPB Q8H [facility] Morphine Sulfate (Morphine 4 Mg/Ml Vial (1 Ml)) 4 mg IV Q3H PRN PAIN - MODERATE TO SEVERE Ondansetron HCl (Zofran Inj*) 4 mg IV Q6H PRN NAUSEA Oxycodone/Acetaminophen (Percocet 5/325 Tab*) 1 tab PO Q4H PRN PAIN Pantoprazole Sodium (Protonix Tab*) 40 mg PO DAILY [facility] Sertraline HCl (Zoloft*) 100 mg PO QAM [facility] Vital Signs - 8 hr 11/22/18 11/22/18 11/22/18 07:41 08:00 08:49 Temperature 98.3 F Pulse Rate 98 Respiratory 17 18 18 Rate Blood Pressure 128/60 (mmHg) O2 Sat by Pulse 94 Oximetry 11/22/18 11/22/18 11/22/18 10:50 11:25 12:08 Temperature 98.3 F Pulse Rate 70 Respiratory 18 16 18 Rate Blood Pressure 102/45 (mmHg) O2 Sat by Pulse 97 Oximetry Oxygen Devices in Use Now: None Appearance: Middle-aged male sitting in chair in NAD Eyes: No Scleral Icterus Ears/Nose/Mouth/Throat: Mucous Membranes Moist Neck: NL Appearance and Movements; NL JVP, Trachea Midline Respiratory: Symmetrical Chest Expansion and Respiratory Effort, Clear to Auscultation Cardiovascular: NL Sounds; No Murmurs; No JVD, RRR Abdominal: NL Sounds; No Tenderness; No Distention Extremities: No Edema Neurological: Alert and Oriented x 3 Lines/Tubes/Other Access: Clean, Dry and Intact Peripheral IV Nutrition: Taking PO's Result Diagrams: 11/22/18 04:27 11/21/18 05:16 Assess/Plan/Problems-Billing Assessment: Mr. Cohen is a 58 yo M with PMH of esophageal cancer currently on chemo, depression, HLD, GERD, and recent postop paroxysmal afib; who sustained a right hip greater trochanteric fracture in a fall now s/p repair. - Patient Problems (1) Fracture of right hip requiring operative repair Code(s): S72.001A - FRACTURE OF UNSP PART OF NECK OF RIGHT FEMUR, INIT Comment : - POD #2 - Management per Ortho - PT/OT, WBAT RLE - Continue Dilaudid, Percocet (2) Esophageal adenocarcinoma Code(s): C15.9 - MALIGNANT NEOPLASM OF ESOPHAGUS, UNSPECIFIED Comment: - S/p resection and now on chemo - Appreciate Oncology consult; transfuse for Hgb <7 and continue DVT prophylaxis unless plt count drops below 50k; antibiotics should be continued through neutropenic period (3) Pancytopenia Code(s): D61.818 - OTHER PANCYTOPENIA Comment: - Now neutropenic - Likely multifactorial: post-operative blood loss, dilutional, and chemo - Continue neutropenic precautions (4) Postoperative atrial fibrillation Code(s): I97.89 - OTH POSTPROC COMP AND DISORDERS OF THE CIRC SYS, NEC; I48.91 - UNSPECIFIED ATRIAL FIBRILLATION Comment: - History of post-operative afib approximately 2 months ago - No evidence of any afib this hospitalization (5) Pre-diabetes Code(s): R73.03 - PREDIABETES Comment: - A1c 6.1% - Will need f/u with PCP (6) DVT prophylaxis Comment: - Lovenox (7) Full code status Code(s): Z78.9 - OTHER SPECIFIED HEALTH STATUS Comment: Status and Disposition: Inpatient. Discharge home vs [facility] when cleared by Ortho. Attending: Medina Castellanos
[2018-11-23] MEDS: ceFAZolin 1 GM* X 3 DOSES POST-OP Q8H (AddVan) IVPB SCH ×4 (01:31→07:47)
[2018-11-23 05:55] LABS: ABS Lymphocytes 0.2 10^3/ul (1.0-4.8); ABS Monocytes 0.4 10^3/ul (0-0.8); ABS Neutrophils 1.3 10^3/ul (1.5-7.7); Eosinophil % 2.4 %; Hematocrit 21 % (42-52); Hemoglobin 7.2 g/dL (14.0-18.0); Lymphocyte % 8.5 %; Mean Corpuscular HGB Conc 35 g/dL (31-36); Mean Corpuscular Hemoglobin 31 pg (27-31); Mean Corpuscular Volume 89 fL (80-94); Mean Platelet Volume 9.5 fL (7.4-10.4); Platelet Count 66 10^3/uL (150-450); Red Blood Count 2.33 10^6 /uL (4.18-5.48); Red Cell Distribution Width 15 % (10.5-15); White Blood Count 1.9 10^3/uL (3.5-10.8)
[2018-11-23] MEDS: Enoxaparin(*) 40 MG/0.4 ML SYR SUBCUT SCH (07:50)
[2018-11-23] MEDS: oxyCODONE/Acetamin 5/325 MG* TAB PO PRN ×2 (07:50→18:18)
[2018-11-23] MEDS: Pantoprazole TAB * 40 MG TAB PO SCH (07:50)
[2018-11-23] MEDS: Sertraline* 100 MG TAB PO SCH (07:50)
[2018-11-23] MEDS: Atorvastatin* 10 MG TAB PO SCH (07:51)
[2018-11-23] MEDS: Cyanocobalamin TAB* 500 MCG PO SCH (07:51)
[2018-11-23] MEDS: Ondansetron INJ* 2 MG/ML VIAL IV PRN (09:50)
--- NOTE | 2018-11-23 10:20 | PN ---
Progress Note - Progress Note Date of Service: 11/23/18 SOAP: Subjective: []Pt seen at bedside. He feels well without CP, SOB, dizziness, nausea. He is progressing towards goals with PT. Objective: []General: Appears well, NAD RLE: Dressing changed, incisions CDI without erythema or discharge. Thigh is soft, DF/PF intact, DP2+, sensation intact to light touch distally. Calves supple and nontender without erythema, edema or palpable cords Assessment: [] POD #3 from R hip ORIF with TFN.] Plan: [PT/OT WBAT RLE Lovenox for DVT ppx x 30 days post op Dressing change daily/ PRN H&H low, asymptomatic. Transfuse if less than 7. Okay to DC from ortho standpoint as he does have guest room/bathroom without need to complete stairs. Needs CBC monitoring for H&H eval need for tranfusion and for PLT less than 50 which would prompt anticoag hold Vital Signs Temp 98.5 F 11/23/18 07:14 Pulse 45 11/23/18 07:14 Resp 18 11/23/18 10:00 BP 109/51 11/23/18 07:14 Pulse Ox 96 11/23/18 07:14 Intake & Output 11/22/18 11/23/18 11/23/18 18:59 06:59 18:59 Intake Total 1010 240 Output Total 600 700 700 Balance 410 -460 -700 Intake: IV Fluids 160 ABX - CEFAZOLIN 110 NS (0.9%) 50 Oral 850 240 Output: Urine 600 700 700 Other: # Bowel Movements 0 Laboratory Last Values WBC 1.9 10^3/uL (3.5-10.8) L 11/23/18 05:00 RBC 2.33 10^6 /uL (4.18-5.48) L 11/23/18 05:00 Hgb 7.2 g/dL (14.0-18.0) L 11/23/18 05:00 Hct 21 % (42-52) L 11/23/18 05:00 MCV 89 fL (80-94) 11/23/18 05:00 MCH 31 pg (27-31) 11/23/18 05:00 MCHC 35 g/dL (31-36) 11/23/18 05:00 RDW 15 % (10.5-15) 11/23/18 05:00 Plt Count 66 10^3/uL (150-450) L 11/23/18 05:00 MPV 9.5 fL (7.4-10.4) 11/23/18 05:00 Neut % (Auto) 69.6 % 11/23/18 05:00 Lymph % (Auto) 8.5 % 11/23/18 05:00 [place] % (Auto) 18.9 % 11/23/18 05:00 Eos % (Auto) 2.4 % 11/23/18 05:00 Baso % (Auto) 0.6 % 11/23/18 05:00 Absolute Neuts (auto) 1.3 10^3/ul (1.5-7.7) L 11/23/18 05:00 Absolute Lymphs (auto) 0.2 10^3/ul (1.0-4.8) L 11/23/18 05:00 Absolute Monos (auto) 0.4 10^3/ul (0-0.8) 11/23/18 05:00 Absolute Eos (auto) 0.0 10^3/ul (0-0.6) 11/23/18 05:00 Absolute Basos (auto) 0.0 10^3/ul (0-0.2) 11/23/18 05:00 Absolute Nucleated RBC 0.0 10^3/ul 11/23/18 05:00 Nucleated RBC % 0.0 11/23/18 05:00 INR (Anticoag Therapy) 1.10 (0.82-1.09) H 11/19/18 23:37 APTT 30.6 seconds (26.0-36.3) 11/19/18 23:37 Sodium 135 mmol/L (135-145) 11/21/18 05:16 Potassium 4.3 mmol/L (3.5-5.0) 11/21/18 05:16 Chloride 105 mmol/L (101-111) 11/21/18 05:16 Carbon Dioxide 28 mmol/L (22-32) 11/21/18 05:16 Anion Gap 2 mmol/L (2-11) 11/21/18 05:16 BUN 14 mg/dL (6-24) 11/21/18 05:16 Creatinine 0.67 mg/dL (0.67-1.17) 11/21/18 05:16 Est GFR ( Amer) 147.4 (>60) 11/21/18 05:16 Est GFR (Non-Af Amer) 121.8 (>60) 11/21/18 05:16 BUN/Creatinine Ratio 20.9 (8-20) H 11/21/18 05:16 Glucose 135 mg/dL (70-100) H 11/21/18 05:16 Hemoglobin A1c 6.1 % (4.0-5.6) H 11/19/18 23:37 Lactic Acid 1.2 mmol/L (0.5-2.0) 11/19/18 23:37 Calcium 8.7 mg/dL (8.6-10.3) 11/21/18 05:16 Total Bilirubin 0.80 mg/dL (0.2-1.0) 11/19/18 23:37 AST 36 U/L (13-39) 11/19/18 23:37 ALT 38 U/L (7-52) 11/19/18 23:37 Alkaline Phosphatase 70 U/L (34-104) 11/19/18 23:37 Troponin I 0.00 ng/mL (<0.04) 11/19/18 23:37 Total Protein 6.6 g/dL (6.4-8.9) 11/19/18 23:37 Albumin 4.3 g/dL (3.2-5.2) 11/19/18 23:37 Globulin 2.3 g/dL (2-4) 11/19/18 23:37 Albumin/Globulin Ratio 1.9 (1-3) 11/19/18 23:37 Urine Color Yellow 11/20/18 03:00 Urine Appearance Clear 11/20/18 03:00 Urine pH 6.0 (5-9) 11/20/18 03:00 Ur Specific Myton 1.015 (1.010-1.030) 11/20/18 03:00 Urine Protein Negative (Negative) 11/20/18 03:00 Urine Ketones Trace (Negative) A 11/20/18 03:00 Urine Blood Negative (Negative) 11/20/18 03:00 Urine Nitrate Negative (Negative) 11/20/18 03:00 Urine Bilirubin Negative (Negative) 11/20/18 03:00 Urine Urobilinogen Negative (Negative) 11/20/18 03:00 Ur Leukocyte Esterase Negative (Negative) 11/20/18 03:00 Urine Glucose Negative (Negative) 11/20/18 03:00 Blood Type A Negative 11/19/18 23:37 Antibody Screen Negative 11/19/18 23:37
[2018-11-23 17:04] VITALS: BP 131/52
--- NOTE | 2018-11-23 19:14 | PN ---
Progress Note - Progress Note Date of Service: 11/23/18 SOAP: Subjective: []Pain is better every day, still limited mobility. Tripped over dog, did not have syncope. No fever or chills. Working with PT. Has been mobile since surgery. No nausea but has noticed increased difficulty swallowing. Just after surgery could eat all foods easily, no difficulty with dry foods and has to chew more carefully. Acetaminophen (Tylenol Tab*) 650 mg PO Q4H PRN PRN Reason: FEVER/HEADACHE Last Admin: 11/20/18 11:27 Dose: 650 mg Atorvastatin Calcium (Lipitor*) 5 mg PO QAM [facility] Last Admin: 11/23/18 07:51 Dose: 5 mg Cyanocobalamin (Vitamin B12 Tab*) 1,000 mcg PO [facility] Last Admin: 11/23/18 07:51 Dose: 1,000 mcg Cyclobenzaprine HCl (Flexeril Tab*) 10 mg PO TID PRN PRN Reason: SPASMS Enoxaparin Sodium (Lovenox(*)) 40 mg SUBCUT Q24H [facility] Last Admin: 11/23/18 07:50 Dose: 40 mg Hydromorphone HCl (Dilaudid Tab*) 2 mg PO Q4H PRN PRN Reason: PAIN Last Admin: 11/22/18 18:29 Dose: 2 mg Sodium Chloride (Ns 0.9% 1000 Ml) 1,000 mls @ 75 mls/hr IV PER RATE [facility] Last Admin: 11/21/18 09:48 Dose: 75 mls/hr Cefazolin Sodium 1 gm/ Sodium (Chloride) 50 mls @ 200 mls/hr IVPB Q8H [facility] Last Admin: 11/23/18 07:47 Dose: 200 mls/hr Ondansetron HCl (Zofran Inj*) 4 mg IV Q6H PRN PRN Reason: NAUSEA Last Admin: 11/23/18 09:50 Dose: 4 mg Oxycodone/Acetaminophen (Percocet 5/325 Tab*) 1 tab PO Q4H PRN PRN Reason: PAIN Last Admin: 11/23/18 18:18 Dose: 1 tab Pantoprazole Sodium (Protonix Tab*) 40 mg PO DAILY [facility] Last Admin: 11/23/18 07:50 Dose: 40 mg Sertraline HCl (Zoloft*) 100 mg PO QAM [facility] Last Admin: 11/23/18 07:50 Dose: 100 mg Objective: [] Vital Signs Temp Pulse Resp BP Pulse Ox 98.1 F 46 18 131/52 100 11/23/18 17:03 11/23/18 17:03 11/23/18 18:18 11/23/18 17:03 11/23/18 17:03 HEENT - no thrush, coating on tongue. pale CTA RRR S1S2 +BS NT ND did not evaluate incision, good pulses BL Assessment: []58 year old pyT3 N1 esophoeal cancer on post operative chemotherapy presents with broken hip after fall. Doing well after surgery. Plan: [] 1. Tx PRBC today and then discharge home, re-check CBC on Friday. 2. ANC increased today an no evidence of infection, discharge off antibiotics. 3. Chemotherapy on hold until fully healed. 4. Will need follow up next 2 weeks for EGD, can be done locally as well.
--- NOTE | 2018-11-24 09:47 | DS ---
CC: Dr. Rupal Zavala; Dr. Hernan Henriquez; Dr. Rashaun Saucedo * DISCHARGE SUMMARY: DATE OF ADMISSION: 11/20/18 DATE OF DISCHARGE: 11/23/18 PRIMARY CARE PROVIDER: Dr. Rupal Zavala. ONCOLOGIST: Dr. Hernan Henriquez. ATTENDING PHYSICIAN: Medina Castellanos MD * (dictated by Jamila Gore NP) PRIMARY DIAGNOSIS: Right hip fracture, status post open reduction and internal fixation. SECONDARY DIAGNOSES: 1. Esophageal adenocarcinoma. 2. Pancytopenia. 3. Thrombocytopenia. 4. History of atrial fibrillation. 5. Prediabetes. STUDIES WHILE IN THE HOSPITAL: 1. EKG on 11/19/18 shows normal sinus rhythm with PACs and a rate of 78, QTc 457. No ischemic changes. 2. Right hip and pelvis x-ray on 11/19/18 reads as nondisplaced intertrochanteric fracture of the right femur. 3. Chest x-ray on 11/19/18 reads as no evidence for acute disease. 4. EKG on 11/20/18 shows normal sinus rhythm with PACs and a rate of 78, QTc 461. No ischemic changes. 5. EKG on 11/21/18 shows sinus tachycardia with a rate of 105, ventricular bigeminy, QTc 492. CONSULTATIONS WHILE IN THE HOSPITAL: Dr. Saucedo from Orthopedics on 11/20/18. PROCEDURES WHILE IN THE HOSPITAL: Right hip open reduction and internal fixation on 11/20/18. HISTORY OF PRESENT ILLNESS AND HOSPITAL COURSE: Mr. Cohen is a 58-year-old male with past medical history of esophageal cancer, GERD, depression, and hyperlipidemia, who presented to the emergency room on 11/20/18 with complaints of right hip pain. Please see the history and physical by Dr. Jerez for complete summary of the events leading up to this hospitalization. In short, the patient was in his home, walking up the stairs when he tripped over his dog and fell to the floor. He had right hip pain and was unable to stand and so presented to the emergency room. Of note, the patient is currently being treated with chemotherapy for esophageal cancer. In the emergency room, he had imaging as noted above, which was remarkable for a right hip fracture. He had lab work which was remarkable for thrombocytopenia with a platelet count of 93. He was admitted by the hospitalist service. Orthopedics was consulted for the right hip fracture and it was determined that they would proceed with an ORIF of the right hip with intramedullary nail. The patient was medically optimized for surgery and ultimately taken to the emergency room on 11/20/18. He tolerated the surgery well with minimum blood loss and had an uneventful recovery. The patient was also followed by Oncology while here in the hospital as he was currently on chemotherapy. Oncology noted pancytopenia, which was secondary to chemotherapy and this was expected as the patient had hit his ileana. He did become neutropenic with an ANC of 900. He was also noted to be anemic, but at that time was refusing a blood transfusion as he was not symptomatic. He was noted to be thrombocytopenic, though Oncology noted that he was fine to continue DVT prophylaxis with Lovenox as long as the platelet count was greater than 50,000. He had no concerns from the orthopedic standpoint and the patient was cleared for discharge by Orthopedics on 11/23/18. He has worked with Physical Therapy who feels as though he has met goals and is safe to return home. He has not done stairs with physical therapy and does have stairs at home, though notes that he can stay in a downstairs bedroom where there is also a bathroom so that he does not have to navigate stairs at this point. He is no longer neutropenic as of today as his ANC is greater than 1000. I will note that he does have a history postoperative atrial fibrillation, though did not any evidence of atrial fibrillation during this hospitalization. He was noted to be prediabetic with an A1c of 6.1%, although this does appear to be consistent with his history as noted on previous records. The patient is anxious to return home today. He has no neurological deficits. Heart has a regular rate and rhythm, without murmurs, rubs, or gallops. Lungs are clear on room air. Physical assessment is otherwise benign. Mr. Cohen's H and H today was 7.2 and 21. I did speak with the patient about a transfusion, and at this time, he is agreeable to a transfusion as he is feeling fatigued and is hopeful that a transfusion will help with this. He has not had any blood transfusions in the past. I have a ordered at this point 1 unit of packed red blood cells to be transfused today and he will be discharged after that is complete as long as there are no complications or transfusion reactions. Mr. Cohen is stable for discharge today. Vital signs are as follows: Temp 97.7, heart rate 92, respiratory rate 18, oxygen saturation 99% on room air, blood pressure 96/54. DISCHARGE MEDICATIONS: New medications: 1. Acetaminophen 650 mg p.o. q.4 hours p.r.n. pain. 2. Flexeril 10 mg p.o. t.i.d. p.r.n. muscle spasm. 3. Enoxaparin 40 mg subcu daily x28 days. 4. Oxycodone and acetaminophen 10/325 one tab p.o. q.4 hours p.r.n. pain. Continued medications: 1. Atorvastatin 5 mg p.o. daily. 2. Vitamin B12 1000 mcg p.o. daily. 3. Omeprazole 40 mg p.o. daily. 4. Sertraline 100 mg p.o. daily. 5. Hyoscyamine 0.125 mg to 0.25 mg p.o. q.4 hours p.r.n. abdominal pain. 6. Ondansetron 4 mg p.o. q.4 hours p.r.n. nausea and vomiting. DISCHARGE PLAN: Mr. Cohen will be discharged home. Activity will be as tolerated per Orthopedics. He is weight-bearing as tolerated on the right leg and should continue PT and OT at home through visiting nurse services. He will need to work with stairs. Diet will be regular as tolerated. Medications are noted above. The patient has been prescribed Flexeril and Percocet for pain management. He will additionally need to complete another 28 days of Lovenox to complete a total of 30 days of postoperative Lovenox per Orthopedics. He can continue his other usual medications as noted above. He will need to have weekly CBCs while on Lovenox as the Lovenox will need to be discontinued if the platelet count drops below 50,000. I have ordered weekly CBCs for 3 weeks with results to go to Orthopedics, Oncology, and the patient's primary care provider. He will need to follow up with his primary care provider in the next 4 to 7 days. He should follow up with Orthopedics as previously instructed and he should follow up with his oncologist as needed. He will need to have daily dry dressing changes to the right hip. The patient should return to the emergency room or nearest hospital for any worsening of symptoms, shortness of breath, lightheadedness, dizziness, chest discomfort, high fever, chills, night sweats, loss of consciousness, or other worrisome signs or symptoms. DISCHARGE CONDITION: Stable. DISCHARGE DISPOSITION: Home. This is a summarized report of a complex medical history and hospital stay. For further details, please see the entire medical record. TIME SPENT: Approximately 45 minutes were spent on this discharge. JAMILA GORE, [employer] OPERATOR [id number]/CPS #: [id number] SORAYA
== END 2018-11-23 19:00 | disposition home health service (06) | DRG 308 ==
LOC: ED 23:15 → MED 11-20 00:15 → SSU 11-20 19:27
PROVIDERS: ADMIT Internal Medicine; ATTEND Internal Medicine
PROC: 0QH606Z Insertion of Intramedullary Internal Fixation Device into Right Upper Femur, Open Approach (ICD-10-PCS; principal; 2018-11-20 15:45)
PROC: 30233N1 Transfusion of Nonautologous Red Blood Cells into Peripheral Vein, Percutaneous Approach (ICD-10-PCS; 2018-11-23)
DX: S72.141A Displaced intertrochanteric fracture of right femur, initial encounter for closed fracture (principal); D61.810 Antineoplastic chemotherapy induced pancytopenia; C15.9 Malignant neoplasm of esophagus, unspecified; S72.111A Displaced fracture of greater trochanter of right femur, initial encounter for closed fracture; D69.6 Thrombocytopenia, unspecified; I48.91 Unspecified atrial fibrillation; K21.9 Gastro-esophageal reflux disease without esophagitis; F32.9 Major depressive disorder, single episode, unspecified; E78.5 Hyperlipidemia, unspecified; M62.838 Other muscle spasm; E53.8 Deficiency of other specified B group vitamins; K58.9 Irritable bowel syndrome, unspecified; R73.03 Prediabetes; W01.0XXA Fall on same level from slipping, tripping and stumbling without subsequent striking against object, initial encounter; Y92.009 Unspecified place in unspecified non-institutional (private) residence as the place of occurrence of the external cause; Z80.0 Family history of malignant neoplasm of digestive organs; Z79.1 Long term (current) use of non-steroidal anti-inflammatories (NSAID); Z79.899 Other long term (current) drug therapy
CPT/HCPCS: 36415; 71045; 80048; 80053; 81003; 83036; 83605; 84484; 85025; 85060; 85610; 85730; 86850; 86900; 86901; 86922; 88304; 93005; 99232; 99284; A9270-GY; C1713; C1776; G8987-GO-CK; G8988-GO-CJ; J0690; J1650; J2250; J2270; J2405; J2704; J3010; P9040